=== PATIENT | female | born 1970 | race Caucasian/White ===

== ENCOUNTER 2019-10-15 15:58 | Observation (INO) | payer MEDICAID, OTHER ==
[~2019-10-15 15:58] MED LIST: Iopamidol 370 76% 100 ML VIAL ONE; Iopamidol-370 76% 500 ML 1 ML ONE
[2019-10-15 16:30] LABS: #Basophils 0.1 thou/uL (0.0-0.2); #Eosinphils 0.1 thou/uL (0.0-0.7); #Monocytes 0.6 thou/uL (0.11-0.59); #Neutrophils 4.3 thou/uL (1.40-6.50); %Eosinophils 0.8 % (0.0-10.0); %Lymphocytes 37.5 % (21.0-51.0); %Monocytes 7.4 % (0.0-10.0); %Neutrophils 53.3 % (42.0-75.0); Hemoglobin 14.5 g/dL (12.0-16.0); Mean Corpuscular HGB CONC 34.2 g/dL (32.0-36.0); Mean Corpuscular Hemoglobin 29.7 pg (27.0-31.0); Mean Corpuscular Volume 86.6 fL (78.0-98.0); Mean Platelet Volume 8.4 fL (7.4-10.4); Platelet Count 366 thou/uL (130-400); RBC Distribution Width 11.8 % (11.5-14.5); Red Blood Cell (RBC) Count 4.88 mill/uL (4.20-5.40); White Blood Cell (WBC) Count 8.1 thou/uL (4.8-10.8)
[2019-10-15] MEDS ORDERED: Mag-Al 1200 mg/1200 mg/30 ML UDCUP ONE (16:35)
[2019-10-15] MEDS ORDERED: Lidocaine Viscous Sol 2% 15 ml UD Cup ONE (16:35)
[2019-10-15] MEDS ORDERED: Pantoprazole 40 MG VIAL ONE (16:35)
[2019-10-15] MEDS ORDERED: Glycopyrrolate 0.2 MG/ML 5 ML SYRINGE SLOW IVP SCH (16:45)
[2019-10-15 16:58] LABS: ALT (SGPT) 15 U/L (8-55); AST (SGOT) 17 U/L (5-34); Albumin 4.7 g/dL (3.5-5.0); Alkaline Phosphatase 66 U/L (40-110); Anion Gap 14 mmol/L (10-20); BUN (Urea Nitrogen) 12 mg/dL (7.0-18.7); Bilirubin, Total 0.5 mg/dL (0.2-1.2); Calc. Creatinine Clearance 0 mL/min (70-130); Calcium 9.5 mg/dL (7.8-10.44); Carbon Dioxide 25 mmol/L (22-29); Chloride 102 mmol/L (98-107); Estimated GFR-MDRD 87; Globulin 3.3 g/dL (2.4-3.5); Glucose 78 mg/dL (70-105); Lipase 18 U/L (8-78); Potassium 3.9 mmol/L (3.5-5.1); Sodium 137 mmol/L (136-145)
[2019-10-15] MEDS ORDERED: Morphine 4 MG/ML VIAL ONE (17:14)
--- NOTE | 2019-10-15 17:50 | ULT ---
RIGHT UPPER QUADRANT ABDOMINAL ULTRASOUND: HISTORY: Epigastric abdominal pain. COMPARISON: None. TECHNIQUE: Multiplanar gillette-scale and color Doppler images were obtained in a right upper quadrant abdominal ult rasound. FINDINGS: The liver is normal in echogenicity without focal lesions or intrahepatic ductal dilatation. The gall bladder is normal without stones, sludge, gallbladder wall thickening or pericholecystic fluid. The c ommon bile duct is normal, measuring 3 mm. The visualized portions of the pancreas are unremarkable. The kidneys are normal in echogenicity with out focal lesions, hydronephrosis or calculi and measure 9.2 cm in length. IMPRESSION: Unremarkable examination. POS: C
--- NOTE | 2019-10-15 20:28 | CT ---
CT ABDOMEN AND PELVIS WITH IV CONTRAST: History: Severe epigastric abdominal pain. Constipation. Comparison: None available. FINDINGS: The lung bases are clear. The liver, spleen, pancreas, bilateral adrenal glands, kidneys, abdominal aorta, and urinary bladder demonstrate a normal CT appearance. The uterus is not visualized, probably related to prior hysterectomy. Loops of small bowel are normal in caliber. The appendix is visualized and normal in caliber. Small amount of contrast is seen in the distal esophagus which may be related to gastroesophageal ref lux. Only the most proximal loops of small bowel are opacified on this exam. There is a small amount of free fluid in the pelvis which is more than expected for physiologic fluid . Exact etiology for fluid is uncertain. No free intraperitoneal gas is seen in the abdomen. There is no fluid collection or lymphadenopathy seen in the abdomen or pelvis. Degenerative changes are seen in the spine, greatest at the lumbosacral junction. There is midline scarring in the lower pelvis. IMPRESSION: 1. Small amount of free fluid in the pelvis. The exact etiology is uncertain. 2. Evidence of prior hysterectomy. 3. No CT evidence of appendicitis. 4. Contrast in the distal esophagus which may be related to gastroesophageal reflux. POS: [facility]
[2019-10-15] MEDS ORDERED: Ondansetron PF 4 MG/2 ML Vial ONE (22:04)
[2019-10-15] MEDS ORDERED: Ondansetron ODT 4 MG TAB SL PRN (22:50)
[2019-10-15] MEDS ORDERED: Ondansetron PF 4 MG/2 ML Vial IVP PRN (22:50)
[2019-10-15] MEDS ORDERED: Morphine 4 MG/ML VIAL SLOW IVP PRN (22:51)
[2019-10-15 22:58] VITALS: BMI 29.6
[2019-10-15] MEDS ORDERED: Pantoprazole 80 MG, Admixture Fee 1 EACH in Sodium Chloride 0.9% 100 ML IVPB SCH (23:00)
[2019-10-15] MEDS: Sodium Chloride 0.9% 1,000 ML IV SCH (23:30)
[2019-10-16] MEDS ORDERED: Acetaminophen 325 MG TAB PO PRN (10:55)
[2019-10-16] MEDS ORDERED: Ondansetron ODT 4 MG TAB PO PRN (10:55)
[2019-10-16] MEDS ORDERED: Ondansetron PF 4 MG/2 ML Vial IVP PRN (10:55)
[2019-10-16] MEDS: Sodium Chloride 0.9% 1,000 ML IV SCH ×3 (12:05→17:48)
--- NOTE | 2019-10-16 12:09 | HP ---
PRIMARY CARE PHYSICIAN: Dr. Naylor in [place], [place]. CHIEF COMPLAINT: Abdominal pain. HISTORY OF PRESENT ILLNESS: Ms. 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 She says that yesterday at around 11 o'clock when she was on her shift, she started noticing a pain under her left rib cage. She says it was kind of like a cramping type pain. She says it kind of radiated toward the middle epigastric region. She says the pain was quite severe and her coworkers noticed that she appeared to have pain due to the expression on her face. She says that there was no other symptoms like nausea, vomiting, or diarrhea, but she says she had to kind of hunch over as a result of the pain. There was also no fevers, no chills, and she denied any trauma. But she says that the ER physician said she should check it out and they did a CT scan of her abdomen. The CT scan was essentially negative except for some small amount of free fluid in the pelvis. Due to concerns of this abnormality, she was placed in observation for further evaluation. She does admit to having some diarrhea off and on, but she says this has been relatively normal for her. She has had a radical hysterectomy about 8 years ago for cervical cancer, but other than that she has been healthy. REVIEW OF SYSTEMS: All systems were reviewed and are negative except for that mentioned in the history of present illness. PAST MEDICAL HISTORY: Significant for cervical cancer. PAST SURGICAL HISTORY: She has had a radical hysterectomy and lymph node dissection, tonsillectomy and tubes in her ears. ALLERGIES: TO PENICILLIN AND SHE CANNOT REMEMBER THE REACTION OR SHE DOES NOT KNOW THE REACTION. SOCIAL HISTORY: She is , has 3 children. She rarely drinks alcohol. She denies any drug use and she does not smoke. FAMILY HISTORY: Significant for her mom has lung cancer. Dad, diabetes and colon cancer. CURRENT MEDICATIONS: Include 1. Estradiol. 2. Adderall. PHYSICAL EXAMINATION: GENERAL: She is alert and oriented. She appears to be in no acute distress. She is well developed, well nourished, very nice and cooperative lady. VITAL SIGNS: Temperature was 97.9, heart rate 61, respiratory rate of 14, blood pressure was 98/52. HEENT: Pupils are equal, round, and reactive. Extraocular muscles are intact. Her sclerae anicteric. Throat, no erythema, no exudates. NECK: No adenopathy, no bruits. LUNGS: Clear to auscultation. There is no wheezing, no rales, no rhonchi. CARDIOVASCULAR: She has a normal S1, S2. There is no S3 or S4. No murmurs, clicks, or rubs. ABDOMEN: Soft. She had some left upper quadrant tenderness, very mild, as well as some mild epigastric tenderness. There was some rebound tenderness, but it was nonreproducible and I was unable to palpate her spleen. Her liver was approximately right at the costal margin. There is a negative Garrido sign. She has good bowel sounds. EXTREMITIES: There is no clubbing, cyanosis, no edema, and no joint effusions. NEUROLOGIC: Grossly nonfocal. LABORATORY DATA: Results were essentially negative. CBC was completely normal. Chemistry panel was completely normal. CT scan was negative except for some free fluid in the pelvis. ASSESSMENT: This is a very pleasant 48-year-old female who presents to the emergency room with some left-sided abdominal pain, the etiology of which is unclear. Her lab results are unremarkable. CT scan was remarkable only for some free fluid. She is being placed in observation, started on IV fluids as well as IV Protonix in the event that this is some type of peptic ulcer disease. She is in an age range where lupus is a possibility and could be potentially lupus serositis. Therefore, we will check an CHRISTOPHER and double-stranded DNA and consult Gastroenterology for further recommendations. I suspect that if she is clinically stable and her pain is improved, then likely she could potentially go home later today or tomorrow. Job ID: [id number]
[2019-10-16] MEDS ORDERED: GoLYTELY 4,000 ml Bottle PO SCH (15:45)
[2019-10-16] MEDS ORDERED: Pantoprazole 40 MG GRANULES PACKET PO SCH (16:15)
[2019-10-16 20:28] LABS: Bacteria/HPF None Seen HPF (None Seen); Bilirubin Negative (Negative); Blood, Urine Trace (Negative); Clarity Clear (Clear); Glucose, Urine (Dipstick) Normal (Negative); Leukocyte Negative Leu/uL (Negative); Nitrite Negative (Negative); Protein, Urine (Dipstick) Negative (Neg-Trace); RBC/HPF 0-3 HPF (0-3); Squamous Epithelial 0-3 HPF (0-3); Urobilinogen Normal mg/dL (Less than 2); WBC/HPF 0-3 HPF (0-3)
[2019-10-16 20:31] LABS: Urine Culture Reflex No No
--- NOTE | 2019-10-16 21:58 | CON ---
DATE OF CONSULTATION: 10/15/2019 REASON FOR CONSULTATION: Abdominal pain. HISTORY OF PRESENT ILLNESS: Rai is a 48-year-old, who works as a nurse in the emergency room. She was admitted for left-sided abdominal pain. Apparently while she was working, she began to have some left upper quadrant discomfort, which was colicky and crampy, come and go. It would radiate a little bit to the middle of her back and also to the epigastric region. She appeared to be in pain in the emergency room and coworkers pointed out that she was going to go home. Her daughter works in the emergency room and encouraged her to stay and be evaluated there. She was evaluated by physicians in multiple stages that were negative and was admitted. The patient states she has not had any pain like this before. She has had no change in appetite. There has been no nausea, vomiting, fever, chills, melena, hematochezia, or hematemesis. Her last bowel movement was 2 days ago and was normal. She does not typically have abdominal pain for bowel movements. She has had no rashes dysuria, frequency, or urgency. Denies prior gallstones. She denies alcohol or drug use. She denies using NSAIDs heavily and has not started any new medications. REVIEW OF SYSTEMS: Respiratory, cardiopulmonary, urologic, gynecologic, skin, all negative. PAST MEDICAL HISTORY: Cervical cancer, history of radiation chemotherapy after surgery. PAST SURGICAL HISTORY: Radical hysterectomy, lymph node dissection, tonsillectomy, bilateral tubes in the ears. SOCIAL HISTORY: She is . She has three children. She rarely drinks alcohol. She does not smoke. She does not use drugs. She is a nurse in the emergency room. FAMILY HISTORY: Mom had lung cancer. Dad, diabetes, possibly colon cancer. There was a grandmother, who had colon cancer. MEDICATIONS: At home: 1. Estradiol. 2. Adderall. Medications here; 1. Zofran p.r.n. normal saline. 2. She is on morphine that has been discontinued. PHYSICAL EXAMINATION: GENERAL: She is resting comfortably in bed. VITAL SIGNS: Blood pressure is 102/51, temperature is 98, respirations 14. GENERAL: She is sitting comfortably in bed. She has no distress. HEENT: Oropharynx, no lesions. NECK: Supple. No adenopathy. LUNGS: Clear. HEART: Regular without clicks or murmurs. ABDOMEN: Soft and nontender. No palpable hepatomegaly. EXTREMITIES: No clubbing, cyanosis, or edema. IMAGING STUDIES: Abdominal ultrasound negative. CT scan of abdomen and pelvis. Degenerative changes in the lumbosacral spine, small amount of free fluid in the pelvis. No adenopathy. Normal small bowel. Normal-appearing colon. No overt large ASSESSMENT: Epigastric left upper quadrant pain of unclear etiology. Some radiation to the back. Little bit of fluid in the pelvis. Abdomen, it is unclear the etiology of this. She has normal labs, normal lipase, normal liver function tests, normal CBC. No inflammatory markers are elevated and she has a benign exam. This may have been viral or postviral ulcer disease always a possibility, but it is very odd presentation. She does not relate any overt symptoms of colitis. However, she has had radiation treatment for cervical cancer in the past. RECOMMENDATIONS: I talked with her about going home with PPI and Bentyl and observation and follow up in the outpatient setting. She is not comfortable doing that as the pain returned earlier today. Hospitalists talked to her about possible endoscopy. We will plan for that tomorrow. We will also perform a colonoscopy as she has a family history of colorectal cancer and had been evaluated sometime. I agree with stopping all narcotics if her pain was to return. Consider EKG and cardiac workup as well with upper abdominal pain in a female of unclear etiology. Job ID: [id number]
[2019-10-17 06:26] LABS: #Basophils 0.1 thou/uL (0.0-0.2); #Eosinphils 0.1 thou/uL (0.0-0.7); #Lymphocytes 2.5 thou/uL (1.20-3.40); #Monocytes 0.6 thou/uL (0.11-0.59); #Neutrophils 3.4 thou/uL (1.40-6.50); %Basophils 1.2 % (0.0-1.0); %Eosinophils 2.1 % (0.0-10.0); %Lymphocytes 36.9 % (21.0-51.0); %Monocytes 8.5 % (0.0-10.0); %Neutrophils 51.4 % (42.0-75.0); Mean Corpuscular HGB CONC 33.3 g/dL (32.0-36.0); Mean Corpuscular Hemoglobin 29.1 pg (27.0-31.0); Mean Corpuscular Volume 87.5 fL (78.0-98.0); Mean Platelet Volume 7.2 fL (7.4-10.4); Platelet Count 315 thou/uL (130-400); RBC Distribution Width 11.5 % (11.5-14.5); Red Blood Cell (RBC) Count 4.47 mill/uL (4.20-5.40); White Blood Cell (WBC) Count 6.6 thou/uL (4.8-10.8)
[2019-10-17 06:47] LABS: Anion Gap 11 mmol/L (10-20); BUN (Urea Nitrogen) 7 mg/dL (7.0-18.7); Calc. Creatinine Clearance 141 mL/min (70-130); Calcium 8.6 mg/dL (7.8-10.44); Carbon Dioxide 25 mmol/L (22-29); Chloride 106 mmol/L (98-107); Estimated GFR-MDRD Greater than 90; Glucose 90 mg/dL (70-105); Potassium 4.2 mmol/L (3.5-5.1); Sodium 138 mmol/L (136-145)
[2019-10-17] MEDS ORDERED: Promethazine HCl 25 MG/ML VIAL SLOW IVP PRN (07:49)
[2019-10-17] MEDS ORDERED: Ondansetron HCl/PF 4 MG/2 ML Vial IVP PRN (07:49)
[2019-10-17] MEDS ORDERED: Promethazine HCl 25 MG/ML VIAL IM PRN (07:49)
[2019-10-17] MEDS ORDERED: Pantoprazole 40 MG GRANULES PACKET PO SCH (09:00)
[2019-10-17 10:07] LABS: Troponin I Less than 0.010 ng/mL (< 0.028)
[2019-10-17] MEDS ORDERED: PROPOFOL 200 MG/20 ML VIAL ONE (11:29)
[2019-10-17] MEDS ORDERED: Lidocaine 1% PF 5 ML VIAL ONE (11:29)
--- NOTE | 2019-10-17 11:29 | OP ---
DATE OF PROCEDURE: 10/17/2019 PROCEDURES PERFORMED: Esophagogastroduodenoscopy with biopsy, colonoscopy (diagnostic). INDICATIONS FOR PROCEDURE: Midepigastric/left upper quadrant abdominal pain, abnormal GI imaging (presence of free fluid in the abdomen). DESCRIPTION OF PROCEDURE: After the risks and benefits of the procedures were explained to the patient including risks of bleeding, infection, perforation, reactions to anesthesia, aspiration, and/or pain, informed consent was obtained. The patient was then taken to the endoscopy suite, where she was maneuvered into the left lateral decubitus position, followed by introduction of anesthesia via propofol and anesthesia support. Once adequate sedation was achieved, the standard gastroscope was introduced into the mouth with intubation of the esophagus, stomach, and the proximal small intestines with the findings listed below. The patient tolerated the procedure well with no immediate perioperative complications. Upon conclusion of this phase of the procedure, all equipment was removed from the patient and the bed was rotated 180 degrees in anticipation of the colonoscopy. Once the patient was in adequate position, a digital rectal examination was performed followed by introduction of the standard colonoscope which was then advanced to the terminal ileum with some difficulty due to tortuosity of the sigmoid colon, but was able to finally achieve terminal ileal intubation. The quality of the prep was good to excellent. The patient tolerated the procedure well with no immediate perioperative complications. Upon conclusion of the procedure, all equipment was removed from the patient and she was transferred to PACU in satisfactory condition. EGD FINDINGS: Esophagus: Normal-appearing mucosa was seen in the proximal, mid, and distal esophagus. There was no evidence of erosions, ulcerations, mass lesions, or active/recent bleeding. Stomach: Normal-appearing mucosa was seen in the gastric cardia, fundus, body, greater curvature, and incisura. However, 3 to 4 small gastric erosions were seen in the antrum measuring approximately 3 to 4 mm in linear length and did not display any evidence of overt ulceration or high-risk stigmata of bleeding. Multiple random biopsies were taken from these erosions in addition to the incisura and gastric body for evaluation of possible H pylori. Otherwise, there was no evidence of ulcerations, mass lesions, or active/recent bleeding. Duodenum: Normal-appearing mucosa was seen in both the duodenal bulb and second portion of the duodenum. There was no evidence of erosions, ulcerations, mass lesions, or active/recent bleeding. IMPRESSION: 1. 3 to 4 small linear gastric erosions, status post biopsies (most likely not the origin of the patient's abdominal pain). 2. Otherwise normal upper endoscopy. COLONOSCOPY FINDINGS: Digital rectal exam; normal findings were seen on external examination. Colon findings: Normal-appearing mucosa was seen in the terminal ileum as well as at the ileocecal valve and appendiceal orifice. Normal-appearing mucosa was then seen in the cecum, ascending colon, transverse colon, descending colon, sigmoid colon, and rectum. Small internal hemorrhoids were seen on rectal retroflexion. IMPRESSION: 1. Normal colonoscopy. 2. No etiology for the patient's abdominal pain was seen during this examination. RECOMMENDATIONS: 1. We will follow up on the biopsy results with repeat upper endoscopy interval depending on pathology of results. 2. We would avoid any NSAIDs both during and after this hospitalization as a possible source of the patient's abdominal pain. 3. We will continue the patient on PPI 40 mg daily in light of gastric erosions. 4. We would recommend a higher fiber/FODMAP diet in light of possible constipation. 5. Pain control per primary team. 6. We will consider non GI origin of her abdominal pain with possible musculoskeletal etiology. Given negative EGD, colonoscopy, imaging and laboratory findings, we will sign off at this time. Please call with any additional questions. The patient can follow up in the GI Clinic as an outpatient in 2 to 3 weeks if continuing to have abdominal pain. Job ID: [id number]
[2019-10-17 11:34] VITALS: TEMP 97
[2019-10-17 12:54] VITALS: BP 108/56
[2019-10-17 13:00] LABS: Troponin I Less than 0.010 ng/mL (< 0.028)
--- NOTE | 2019-10-17 14:26 | PDOC.HOSPP ---
- Subjective Encounter Date: 10/17/19 Encounter Time: 14:24 Subjective: Ms. Atwood was seen today in follow-up of abdominal pain. She says it has completely resolved. - Objective Vital Signs & Weight: Vital Signs (12 hours) Temp Pulse Resp BP BP Pulse Ox 10/17/19 08:45 97.0 F L 56 L 18 108/56 L 100 10/17/19 08:00 97.0 F L 60 16 120/56 L 10/17/19 04:30 98.6 F 76 16 116/48 L 96 Weight Admit Weight 178 lb Weight 178 lb I&O: 10/16/19 10/17/19 10/18/19 06:59 06:59 06:59 Intake Total 900 1072 Output Total 950 Balance 900 122 Result Diagrams: 10/17/19 06:16 10/17/19 06:16 Hospitalist ROS - Medication Medications: Active Medications Generic Name Dose Route Start Last Admin Trade Name Freq PRN Reason Stop Dose Admin Acetaminophen 650 mg 10/16/19 10:55 10/16/19 12:55 Tylenol PO 650 mg Q4H PRN Administration Headache/Fever/Mild Pain (1-3) Sodium Chloride 1,000 mls @ 75 mls/hr 10/16/19 11:00 10/16/19 17:48 Normal Saline 0.9% IV 1,000 mls .[id number] MIGUEL Administration Pantoprazole Sodium 40 mg 10/17/19 09:00 10/16/19 16:35 Protonix PO 40 mg DAILY MIGUEL Administration Sodium Chloride 10 ml 10/16/19 21:00 10/16/19 19:33 Flush - Normal Saline IVF Not Given Q12HR MIGUEL - Exam Eye: PERRL Heart: RRR, no murmur, no gallops, no rubs, normal peripheral pulses Respiratory: CTAB, no wheezes, no rales, no ronchi Gastrointestinal: soft, non-tender, non-distended, normal bowel sounds Hosp A/P (1) Abdominal pain Code(s): R10.9 - UNSPECIFIED ABDOMINAL PAIN Status: Acute - Plan * Abdominal pain- resolved * ? etiology * Stable for discharge home
[2019-10-18 16:46] LABS: ANA Symphony (Qualitative) Negative (Negative); ANA Symphony (Quantitative) 0.2 Ratio (< 0.7 Negative); dsDNA IgG Antibody Less than 0.5 IU/mL (<10 Negative)
--- NOTE | 2019-10-22 23:52 | EKG ---
Test Reason : Blood Pressure : / mmHG Vent. Rate : 055 BPM Atrial Rate : 055 BPM P-R Int : 140 ms QRS Dur : 076 ms QT Int : 480 ms P-R-T Axes : 060 083 034 degrees QTc Int : 459 ms Sinus bradycardia Otherwise normal ECG No previous ECGs available Confirmed by Erica BARAHONA ([id number]) on 10/22/2019 11:51:37 PM Referred By: JEN Confirmed By:Erica BARAHONA
== END 2019-10-17 16:25 | disposition home or self-care (01) ==
LOC: ERS 15:58 → 3SE 22:30
PROVIDERS: ADMIT Hospitalist; ATTEND Hospitalist
PROC: 0DB78ZX Excision of Stomach, Pylorus, Via Natural or Artificial Opening Endoscopic, Diagnostic (ICD-10-PCS; principal; 2019-10-17)
PROC: 0DJD8ZZ Inspection of Lower Intestinal Tract, Via Natural or Artificial Opening Endoscopic (ICD-10-PCS; 2019-10-17)
DX: K31.89 Other diseases of stomach and duodenum (principal); K29.50 Unspecified chronic gastritis without bleeding; K25.9 Gastric ulcer, unspecified as acute or chronic, without hemorrhage or perforation; K64.8 Other hemorrhoids; R93.3 Abnormal findings on diagnostic imaging of other parts of digestive tract; K59.00 Constipation, unspecified; Z85.41 Personal history of malignant neoplasm of cervix uteri; Z79.899 Other long term (current) drug therapy; Z88.0 Allergy status to penicillin
CPT/HCPCS: 36415; 74177; 76705; 80048; 80053; 81001; 83690; 84484; 85025; 86038; 86225; 88305; 88312; 93005; 93010; 96361; 96366; 96374; 96375; C9113; G0378; J2001; J2270; J2405; J2704; J3490; Q9967

== ENCOUNTER 2021-03-17 13:23 | Outpatient (CLI) | payer OTHER | END 2021-03-17 13:24 | disposition home or self-care (01) | LOC: BICMAMMO 13:23 | PROVIDERS: ATTEND Advanced Practice Midwife | DX: N63.20 Unspecified lump in the left breast, unspecified quadrant (principal) | CPT/HCPCS: G0279 ==